=== PATIENT | male | born 2000 | race Caucasian/White ===

== ENCOUNTER 2021-12-12 16:07 | Emergency (ER) | payer OTHER ==
[~2021-12-12] VITALS: Ht 162.6 cm; Wt 53.6 kg
[2021-12-12] MEDS ORDERED: MORPHINE 2 MG/ML 1ML VIAL (J2270) IV ONE (16:20)
[2021-12-12] MEDS ORDERED: HYDR-3713 PO (18:53)
[2021-12-12 19:10] VITALS: BP 127/64
== END 2021-12-12 19:29 | disposition home or self-care (01) ==
LOC: M ED 16:07
DX: S87.01XA Crushing injury of right knee, initial encounter (principal); M66.88 Spontaneous rupture of other tendons, other sites; Y92.9 Unspecified place or not applicable; Y93.B9 Activity, other involving muscle strengthening exercises; Y99.1 Military activity
CPT/HCPCS: 73564; 73590; 73721; 96374; 99284; J2270